=== PATIENT | female | born 1975 | race Caucasian/White ===

== ENCOUNTER 2023-02-08 15:11 | Emergency (ER) | payer OTHER ==
[2023-02-08] MEDS ORDERED: IBUPROFEN 600 MG TABLET (FP) PO ONE ×2 (15:45→15:48)
[2023-02-08 15:58] VITALS: BP 132/71; PULSE 80; RESP 18; TEMP 98.4; BMI 21.7
== END 2023-02-08 16:11 | disposition home or self-care (01) ==
LOC: FER 15:11
DX: S13.4XXA Sprain of ligaments of cervical spine, initial encounter (principal); M54.2 Cervicalgia; M25.512 Pain in left shoulder; V49.40XA Driver injured in collision with unspecified motor vehicles in traffic accident, initial encounter; Y93.I9 Activity, other involving external motion; R11.0 Nausea; R53.1 Weakness
CPT/HCPCS: 99283-25